=== PATIENT | male | born 1985 | race Caucasian/White ===

== ENCOUNTER 2020-04-24 16:27 | Emergency (ER) | payer OTHER, SELFPAY ==
[2020-04-24 16:35] VITALS: BP 151/80; PULSE 79; RESP 12; TEMP 36.7; O2SAT 100
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
[2020-04-24] MEDS: TETANUS,DIPHTHERIA,AC PERTUSSIS ADULT (0.5 ML) BOOSTRIX IM (17:16)
[2020-04-24] MEDS: SILVER SULFADIAZINE 1% CR 50 GM JAR (*BKC) 1 APPLIC TOPICAL (17:18)
== END 2020-04-24 17:40 | disposition home or self-care (01) ==
PROVIDERS: Emergency Provider Registered Nurse
DX: T23.261A Burn of second degree of back of right hand, initial encounter (principal); X12.XXXA Contact with other hot fluids, initial encounter; Z23 Encounter for immunization
CPT/HCPCS: 16020; 90471; 90715; 99213; A9270; G0463

== ENCOUNTER 2022-12-18 17:12 | Emergency (ER) | payer OTHER, SELFPAY ==
[2022-12-18 17:24] VITALS: BP 136/74; PULSE 89; RESP 16; TEMP 37.4; O2SAT 100
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
== END 2022-12-18 17:50 | disposition home or self-care (01) ==
PROVIDERS: Emergency Provider Nurse Practitioner Family
DX: T23.131A Burn of first degree of multiple right fingers (nail), not including thumb, initial encounter (principal); X10.2XXA Contact with fats and cooking oils, initial encounter; Y99.0 Civilian activity done for income or pay
CPT/HCPCS: 99213; G0463

== ENCOUNTER 2023-04-09 16:35 | Emergency (ER) | payer OTHER, SELFPAY ==
[2023-04-09 16:50] VITALS: BP 143/79; PULSE 83; RESP 20; TEMP 37.2; O2SAT 100
--- NOTE | 2023-04-09 16:59 | ED.DENTAL ---
HPI - Dental/Oral General Chief complaint: Dental/Oral Stated complaint: Toothache Time Seen by Provider: 04/09/23 16:55 Source: patient Mode of arrival: ambulatory Limitations: no limitations History of Present Illness HPI Narrative: Tony is a 37-year-old male patient presenting to clinic today with complaints right upper molar dental pain that started this morning. He reports he is having swelling to the right upper jaw with pain. No known fever or chills. Has trying to get into a dentist today and was unsuccessful. Related Data Home Medications Medication Instructions Recorded Confirmed amlodipine 5 mg-benazepril 10 mg cap 12/18/22 capsule Allergies Allergy/AdvReac Type Severity Reaction Status Date / Time clavulanic acid Allergy Mild Swelling Verified 04/24/20 16:41 codeine Allergy Mild INCREASE HR Verified 04/24/20 16:41 Penicillins Allergy Mild Swelling Verified 04/24/20 16:41 amoxicillin [From Augmentin] Allergy Swelling Verified 04/24/20 17:04 BETALACTAMASEIN Allergy Mild Swelling Uncoded 10/07/08 13:52 Review of Systems Review of Systems: Pertinent positives per HPI. Patient denies any fever, chills, rash, headache, visual changes, dizziness, cough, runny nose, sore throat, shortness of breath, chest pain, palpitations, nausea, vomiting, diarrhea, constipation, abdominal pain, or any urinary issues. PMFSH Past Medical History Medical History Ear infection History of rectal abscess surgical incision Pilonidal abscess Surgical History Surgical History History of placement of ear tubes History of tympanoplasty of right ear Social History Social History Smoking status: Never smoker Alcohol intake: never Substance use: never Living arrangements: with family Gender identity (if verbalized by the patient): Male Comments At the time of my signature, I reviewed and agree with the nursing past medical, surgical, social, and family history. There is no relevant family history pertinent to the patient complaint. Exam Narrative: General: Well-developed, well nourished, in no apparent distress Head: Normocephalic, atraumatic Eyes: Pupils equally round and reactive to light bilaterally, EOM intact, sclera and conjunctive clear, no discharge, lids normal Ears: TMs intact and clear, ear canals clear, no drainage, grossly hearing normal. Nose: Nares patent, no discharge, no inflammation, no sinus tenderness. Mouth: Oropharynx without lesions or masses, very poor dentition, MMM. Fractured right posterior upper molar with redness and swelling to the gum, tender to palpation Neck: Supple, trachea midline, no enlargement of anterior or posterior cervical nodes, no thyroid masses or goiter palpable. Cardio: Regular rate and rhythm, s1 and s2 normal, no murmur appreciated. Resp: Clear to auscultation bilaterally anteriorly and posteriorly, no rhonchi, rales, wheezing or rubs Course Course Emergency Course: Portions of this record may have been created with voice recognition software. Level of Care: Express Care Visit Vital Signs Vital signs: Vital Signs Temperature 37.2 C 04/09/23 16:50 Pulse Rate 83 04/09/23 16:50 Respiratory Rate 20 04/09/23 16:50 Blood Pressure 143/79 H 04/09/23 16:50 Pulse Oximetry 100 04/09/23 16:50 Oxygen Delivery Room Air 04/09/23 16:50 Temperature 37.2 C 04/09/23 16:50 Pulse Rate 83 04/09/23 16:50 Respiratory Rate 20 04/09/23 16:50 Blood Pressure 143/79 H 04/09/23 16:50 Pulse Oximetry 100 04/09/23 16:50 Oxygen Delivery Room Air 04/09/23 16:50 Vital signs reviewed MDM - Dental/Oral MDM Narrative Medical decision making narrative: At the time of visit patient is resting comfortably on the exam table. I suspect patient may have
== END 2023-04-09 17:10 | disposition home or self-care (01) ==
PROVIDERS: Emergency Provider Nurse Practitioner Family
DX: K04.7 Periapical abscess without sinus (principal)
CPT/HCPCS: 99213; G0463